=== PATIENT | female | born 1980 | race Caucasian/White ===

== ENCOUNTER 2017-07-26 12:44 | Emergency (ER) | payer BC, OTHER ==
[~2017-07-26] VITALS: Ht 172.7 cm; Wt 143.6 kg
[~2017-07-26 12:44] MED LIST: ATENOLOL25 MG PO; CLARITIN10 M3 PO; EFFEXOR XR37.5 MG PO; ENDOCET 5-3251 EACH PO; ESCITALOPRAM OX10 MG PO; Effexor XR PO; FEOSOL325 MG PO; FIORICET,ESG1 TABLET PO; FLEXERIL10 MG PO; IBUPROFEN800 MG PO; LORAZEPAM0.5 MG PO; NAPROSYN500 MG PO; PHENERGAN25 MG PR; PRENATABS FA T1 EACH PO; PROAIR HFA8.5 GM IH; Proventil,Ventolin H IH; REGLAN5 MG PO; SUMATRIPTAN SUC50 MG PO; TYLENOL EXTRA500 MG PO; YAZ 28 TABLET1 EACH PO; ZYRTEC10 MG PO
[2017-07-26 13:55] LABS: EOSINOPHIL (%) 1.5 % (0-5); EOSINOPHIL COUNT 0.1 K/uL (0-0.3); HEMATOCRIT 38.9 % (36.0-46.0); IMMATURE GRANULOCYTE (%) 0.4 % (0.0-0.7); INSTRUMENT ABS NEUTROPHIL CT 4.7 K/uL; LYMPHOCYTE COUNT 1.3 K/uL (1.0-2.8); MCH 26.8 PG (29.0-34.0); MCHC 31.9 G/DL (30.0-36.0); MCV 84.2 FL (83-99); MEAN PLAT.VOLUME 9.1 uM^3 (9.5-12.4); MONOCYTE (%) 8.9 % (3-12); MONOCYTE COUNT 0.6 K/uL (0-0.8); NEUTROPHIL (%) 69.3 % (45-76); NEUTROPHIL COUNT 4.7 K/uL (1.8-6.4); PLATELET COUNT 296 K/uL (156-360); RBC DIS.WIDTH-CV 13.9 % (11.8-14.6); RBC DIS.WIDTH-SD 42.7 % (39-53); RED BLOOD COUNT 4.62 M/uL (3.80-5.20); WHITE BLOOD COUNT 6.7 K/uL (4.1-10.2)
[2017-07-26 14:02] LABS: INTER. NORMALIZED RATIO 1.1; PROTHROMBIN TIME 11.7 SEC (10.2-12.9)
[2017-07-26 14:05] LABS: CHLORIDE 108 mEq/L (99-109); POTASSIUM 3.9 mEq/L (3.7-5.4); PTT 28.8 SEC (25-37); SODIUM 141 mEq/L (136-147)
[2017-07-26 14:07] LABS: GLUCOSE 97 mg/dL (70-99)
[2017-07-26 14:08] LABS: ANION GAP 9 MEQ/L (2-14)
[2017-07-26 14:09] LABS: TOTAL BILIRUBIN 0.5 mg/dL (0.0-1.0)
[2017-07-26 14:11] LABS: ALKALINE PHOSPHATASE 102 IU/L (3-129); GFR ESTIMATE (CALCULATED) > 59 mL/min/
[2017-07-26 14:12] LABS: UREA NITROGEN (BUN) 7 mg/dL (9-23)
[2017-07-26 14:14] LABS: CREATINE KINASE 184 IU/L (1-294); TOTAL CK 184 IU/L (1-294)
[2017-07-26 14:16] LABS: TROP-I INTERPRETATION NEGATIVE; TROPONIN-I < 0.01 ng/mL (0.0-0.30)
[2017-07-26 14:20] LABS: CK-MB 1.9 ng/mL (0.0-4.9)
[2017-07-26 14:56] LABS: ADD MIUA? NO; BILIRUBIN NEGATIVE; BLOOD NEGATIVE; COLOR YELLOW ((YELLOW)); GLUCOSE (STRIP) NEGATIVE; KETONES NEGATIVE; LEUKOCYTES NEGATIVE; NITRITE NEGATIVE; PROTEIN (STRIP) NEGATIVE; SPECIFIC GRAVITY 1.006 (1.000-1.030); UCUL ADDED? NO; UROBILINOGEN 0.2 MG/DL (0.2-1.0)
[2017-07-26 18:28] VITALS: BP 137/78
== END 2017-07-26 18:29 | disposition home or self-care (01) ==
LOC: EME 12:44
PROVIDERS: Emergency Medicine
DX: G45.4 Transient global amnesia (principal); J45.909 Unspecified asthma, uncomplicated; K21.9 Gastro-esophageal reflux disease without esophagitis
CPT/HCPCS: 70450; 71010; 80053; 81003; 82550; 82553; 84484; 85025; 85610; 85730; 93005; 99281; 99285